=== PATIENT | female | born 1995 | race Caucasian/White ===

== ENCOUNTER 2021-10-05 23:23 | Emergency (ER) | payer OTHER ==
[~2021-10-05] VITALS: Ht 157.4 cm; Wt 45.1 kg
[2021-10-05 23:40] VITALS: BP 114/69
[2021-10-05] MEDS ORDERED: RX-CEPHALEXIN (KEFLEX) 250 MG CAP PPK#4 PO STA (23:48)
[2021-10-05] MEDS ORDERED: CEPH500T PO (23:53)
--- NOTE | 2021-10-05 23:53 | ED Upper Extremity ---
General Chief Complaint: Laceration Stated Complaint: R HAND THUMB LAC,BLEEDING Allergies and Home Medications Allergies Coded Allergies: No Known Drug Allergies (Unverified , 10/05/21) Past Mdhzcrf-Cosnis-Gzthqh Hx Patient Social History Tobacco Use?: No Use of E-Cig and/or Vaping dev: No Substance use?: No Alcohol Use?: No Pt feels they are or have been: No Immunizations Up To Date Influenza Vaccine Up-to-Date: No; Not Current Seasonal Allergies Seasonal Allergies: Yes Past Medical History Surgeries: No Respiratory: No Cardiac: No Neurological: No Genitourinary: No Gastrointestinal: No Musculoskeletal: No Endocrine: No HEENT: No Cancer: No Psychosocial: No Integumentary: No Blood Disorders: No Physical Exam Vital Signs Capillary Refill : Height, Weight, BMI Height: 5'0" Weight: 89lbs. oz. [age]yo; BMI Method:Stated Departure Impression Primary Impression: Laceration of right thumb without damage to nail Disposition: 01 HOME, SELF-CARE Condition: Stable Departure-Patient Inst. Decision time for Depature: 23:50 Referrals: WINTER LY MD (PCP/Family) Primary Care Physician Patient Instructions: SKIN AVULSION Add. Discharge Instructions: CLEAN WOUND TWICE A DAY WITH ANTIBACTERIAL SOAP AND WATER, APPLY ANTIBIOTIC OINTMENT AND FRESH DRESSING TWICE A DAY WEAR SPLINT/FINGER GUARD AT ALL TIMES TYLENOL AND MOTRIN NEEDED FOR PAIN FOLLOW UP WITH [facility] ON FRIDAY FOR FURTHER CARE All discharge instructions reviewed with patient and/or family. Voiced understanding. Scripts Cephalexin (Cephalexin) 500 Mg Tablet 500 MG PO QID, #20 TAB 0 Refills Prov: WINTER BEAL DO 10/05/21 WINTER BEAL DO Oct 05, 2021 23:53
== END 2021-10-06 00:08 | disposition home or self-care (01) ==
LOC: EDUNIT# 23:23 → ER 23:26
DX: S61.011A Laceration without foreign body of right thumb without damage to nail, initial encounter (principal); Z28.310 Unvaccinated for COVID-19; X58.XXXA Exposure to other specified factors, initial encounter
CPT/HCPCS: 99282